=== PATIENT | female | born 1990 | race Caucasian/White ===

== ENCOUNTER 2017-03-20 12:29 | Emergency (ER) | payer OTHER ==
[~2017-03-20] VITALS: Ht 165.1 cm; Wt 89.5 kg
[2017-03-20] MEDS ORDERED: PERTUSS(ACELL),DIPH,TET VAC/PF 0.5 ML VIAL IM ONE (13:45)
[2017-03-20] MEDS ORDERED: POVIDONE-IODINE 10% 15 ML SOLUTION UD TP ONE (14:15)
[2017-03-20] MEDS ORDERED: LIDOCAINE HCL 1% 10 ML VIAL INJ ONE (14:15)
[2017-03-20 14:45] VITALS: BP 118/64
== END 2017-03-20 15:07 | disposition home or self-care (01) ==
LOC: EMS 12:32
DX: S60.451A Superficial foreign body of left index finger, initial encounter (principal); R03.0 Elevated blood-pressure reading, without diagnosis of hypertension; X58.XXXA Exposure to other specified factors, initial encounter; Y93.89 Activity, other specified; Y92.89 Other specified places as the place of occurrence of the external cause; Y99.8 Other external cause status
CPT/HCPCS: 10120; 73140; 90471; 90715; 99284; J3490